=== PATIENT | male | born 1955 | race Caucasian/White ===

== ENCOUNTER 2021-01-31 11:25 | Emergency (ER) | payer MEDICARE, SELFPAY ==
--- NOTE | ~2021-01-31 | XR_ITS ---
EXAMINATION: XR tibia fibula RT 2V INDICATION: Right leg pain TECHNIQUE: Two views of the right tibia and fibula are obtained on four radiographs. COMPARISON: None available FINDINGS: There is mild anterior soft tissue swelling of the leg without underlying osseous abnormali ty. There is moderate osteoarthritis of the knee and ankle. Osteochondromas are noted in the proximal tibia and fibula. IMPRESSION: 1. No acute osseous abnormality. Reviewed, dictated and finalized at location A.
[2021-01-31 11:32] VITALS: BP 123/67; PULSE 68; RESP 16; TEMP 37; O2SAT 98
--- NOTE | 2021-01-31 12:04 | ED.WOUNDLAC ---
HPI - Wound/Laceration General Chief Complaint: Wound/Laceration Stated Complaint: ankle/leg injury Time Seen by Provider: 01/31/21 12:00 Source: patient, RN notes reviewed and old records reviewed Mode of arrival: ambulatory Limitations: no limitations History of Present Illness HPI narrative: 65-year-old male who presents to [facility] with complaints of injury to his right anterior lower leg on January 20 when a log rolled down a hill and hit his right lower leg in anterior distal area. Patient has healing abrasions to right anterior lower leg and he is taking an antibiotic of Keflex which his primary physician prescribed for him with 2 1/2 days left of prescription. Patient is concerned today that area around scabbed wounds remains red with some swelling present, concerned may also be underlying fracture. Patient denies any fevers, chills or sweats. Onset (ago): week(s) (January 20) Location: other (right lower leg anterior aspect) Extremity Location: Right: lower leg (anterior right lowerleg) Context: accidental Treatments prior to arrival: other (presently on antibiotics) Related Data Home Medications Medication Instructions Recorded Confirmed aspirin 81 mg tablet,delayed 81 mg PO DAILY 07/19/19 01/31/21 release Allergies Allergy/AdvReac Type Severity Reaction Status Date / Time No Known Allergies Allergy Verified 01/31/21 11:52 Review of Systems Review of Systems: Narrative: CONSTITUTIONAL: Denies fever, chills, or sweats. EYES: Denies visual changes, redness, or discharge. ENT: Denies rhinorrhea, congestion, sore throat, or otalgia. CARDIOVASCULAR: Denies chest pain, palpitations, or edema. RESPIRATORY: Denies cough or dyspnea. GASTROINTESTINAL: Denies abdominal pain, nausea, vomiting, or diarrhea. GENITOURINARY: Denies dysuria or hematuria. SKIN: Denies rash or itching.scabbed wounds X2 to right lower leg anterior aspect with some surrounding redness and swelling MUSCULOSKELETAL: Denies back pain, joint pain, discomfort to right anterior lower leg NEUROLOGIC: Denies headache, numbness, or weakness. PSYCHIATRIC: Denies anxiety or depression. All systems reviewed & are unremarkable except as noted in HPI and below PMFSH Past Medical History Medical History Aneurysm of abdominal aorta branch vessel Aortic stenosis, moderate BMI 25.0-25.9,adult BMI 26.0-26.9,adult Carotid bruit Essential hypertension Heart murmur Mixed hyperlipidemia Osteoarthritis Restless leg syndrome Type 2 diabetes mellitus with diabetic neuropathy, without long-term current use of insulin Surgical History Surgical History History of cardiac catheterization Family History Family History Mother Carcinoma of colon Family history of lung cancer Sibling Family history of lung cancer Family history of type 2 diabetes mellitus Social History Social History Smoking status: Never smoker Second hand tobacco smoke exposure: No Alcohol intake: never Comments At time of signature, agree with nursing past medical, surgical, social and family history. There is no relevant family history pertinent to the presenting complaint Exam Narrative: Exam Narrative: GENERAL: Well-appearing, well-nourished, and in no acute distress. HEAD: Normocephalic, atraumatic. EYES: PERRLA and EOMI. ENT: Nares clear, no rhinorrhea or epistaxis. Mucous membranes moist. NECK: Supple. no lymphadenopathy CHEST: Clear to auscultation. No respiratory distress.SAO2 98% on room air HEART: Regular rate and rhythm. No murmur heard. Normal peripheral pulses. ABDOMEN: Soft, nontender, nondistended, normal active bowel sounds. EXTREMITIES: Normal range of motion. edema anterior area of distal lower right leg. SKIN: Warm, dry, no rash. healing scab
== END 2021-01-31 12:45 | disposition home or self-care (01) ==
PROVIDERS: Emergency Provider Registered Nurse; PCP Family Medicine
DX: S80.11XA Contusion of right lower leg, initial encounter (principal); W20.8XXA Other cause of strike by thrown, projected or falling object, initial encounter; I35.0 Nonrheumatic aortic (valve) stenosis; I10 Essential (primary) hypertension; R01.1 Cardiac murmur, unspecified; E78.2 Mixed hyperlipidemia; G25.81 Restless legs syndrome; E11.42 Type 2 diabetes mellitus with diabetic polyneuropathy
CPT/HCPCS: 73590; 99213; G0463

== ENCOUNTER 2022-08-16 09:19 | Outpatient (RCR) | payer MEDICARE, SELFPAY ==
[2022-08-16 09:29] VITALS: BMI 25.7
[2022-08-16 10:18] VITALS: BMI 25.7
== END 2022-10-31 08:50 | disposition home or self-care (01) ==
LOC: ANHDMC 09:19
PROVIDERS: PCP Family Medicine; Visit Provider Family Medicine
DX: E11.40 Type 2 diabetes mellitus with diabetic neuropathy, unspecified (principal); E11.65 Type 2 diabetes mellitus with hyperglycemia; Z71.3 Dietary counseling and surveillance
CPT/HCPCS: 97802

== ENCOUNTER 2024-01-29 09:50 | Outpatient (CLI) | payer MEDICARE, SELFPAY ==
--- NOTE | ~2024-01-29 | XR_ITS ---
XR hip RT 2V w AP pelvis Ordering provider: FARZAD Flores History: . m54.50 Low back pain, unspecified . Comparison: None. FINDINGS: BONES: No acute fracture or dislocation. HIP JOINT SPACES: Bilateral mild osteoarthritic changes. SACROILIAC JOINT SPACES/LUMBAR SPINE: The sacroiliac joint spaces are normal. Mild degenerative norman es of the visualized lower lumbar spine. PUBIC SYMPHYSIS: Normal. SOFT TISSUES: Normal. IMPRESSION: No definite acute osseous abnormality pelvis and right hip. Lucency seen in the mid right acetabulum is most likely summation shadow. Reviewed, dictated and finalized at location A.
== END 2024-01-29 09:51 ==
PROVIDERS: PCP Family Medicine; Visit Provider Nurse Practitioner Family
DX: M54.50 Low back pain, unspecified (principal); M25.551 Pain in right hip
CPT/HCPCS: 73502

== ENCOUNTER 2025-05-01 08:45 | Outpatient (RCR) | payer MEDICARE, SELFPAY | END 2025-05-05 09:21 | disposition home or self-care (01) | LOC: ANHCPREHAB 08:45 | DX: Z95.1 Presence of aortocoronary bypass graft (principal); Z95.2 Presence of prosthetic heart valve | CPT/HCPCS: 93798 ==

== ENCOUNTER 2025-05-22 09:48 | Outpatient (CLI) | payer MEDICARE, SELFPAY ==
--- NOTE | ~2025-05-22 | CT_ITS ---
Exam: CT chest without contrast Clinical History: [Solitary pulmonary nodule ] Comparison: [ None] Technique: Multiple axial CT images of the chest without with IV contrast. Sagittal and coronal reformatted images were obtained. FINDINGS: Lungs and pleura: [ Tracheal bronchial tree is patent. No pneumothorax. No pleural effusion. No pulmonary mass.] There is a 4 mm pulmonary nodule in the right lower lobe. There are a few small reticular opacities in the lower lungs likely atelectasis or scarring. Mediastinum and pulmonary tova: [ No mass or adenopathy.] Axillary/intramammary and supraclavicular: [ No mass or adenopathy.] Heart and great vessels: [ Normal heart size.[ [ No pericardial effusion.] [ No aneurysm.] There are coronary artery calcifications. Mild atherosclerotic disease in the thoracic aorta. Median sternotomy wires. Chest Wall: [ Unremarkable.] Upper Abdomen: Cholecystectomy clips. Osseous structures: [ No acute fracture lesion.] [ Multilevel degenerative change in the visualized spine.] Additional findings: [ None of significance.] IMPRESSION: 1. There is a 4 mm pulmonary nodule in the right lower lobe. A follow-up chest CT in 6 months is recommended. 2. Cholecystectomy. Reviewed, dictated and finalized at location Q.
== END 2025-05-22 09:49 | disposition home or self-care (01) ==
LOC: MICIMG 09:50
PROVIDERS: PCP Family Medicine; Visit Provider Family Medicine
DX: R91.1 Solitary pulmonary nodule (principal); Z90.49 Acquired absence of other specified parts of digestive tract
CPT/HCPCS: 71250